=== PATIENT | female | born 1995 | race Hispanic/Latino ===

== ENCOUNTER 2016-06-30 22:42 | Emergency (ER) | payer OTHER ==
[~2016-06-30] VITALS: Ht 154.9 cm; Wt 81.8 kg
[~2016-06-30 22:42] MED LIST: MIRT15TA PO; PRAZ1CAP PO; RISP2TAB21 PO; SERT50TA PO
[2016-06-30 22:45] VITALS: BP 97/62; PULSE 83; RESP 16; O2SAT 100
--- NOTE | 2016-07-01 00:21 | ED.REPORT ---
HPI- Female Date of Service July 01, 2016 ED Provider: Michel Rascon MD A 21 year old female with a history of PTSD, asthma, and depression presents to the ED reporting abnormal vaginal bleeding onset one week ago. The patient reports clotting and "tissue-like" discharge, different from her normal menstrual period. Associated symptoms include mild lower abdominal cramping and painful intercourse. The patient denies nausea, vomiting, or other symptoms. She was seen at [facility] yesterday and was placed on Septra for a UTI. Her previous menstrual period was in March. She has had no positive home urine tests. Nursing Notes Stated Complaint: VAGINAL BLEEDING Chief Complaint: Female Abdominal Pain Nursing Notes Reviewed: Yes Allergies: Coded Allergies: No Known Allergies (Unverified , 06/30/16) Scheduled Doxycycline Monohyd (Doxycycline Monohyd) 100 Mg Tablet 100 MG PO BID Metronidazole (Flagyl) 500 Mg Tablet 500 MG PO Q8H Prazosin (Minipress) 1 Mg Capsule 4 MG PO HS Prazosin (Minipress) 1 Mg Capsule 1 MG PO DAILY Risperidone (Risperdal) 2 Mg Tablet 2 MG PO HS Sertraline HCl (Zoloft) 50 Mg Tablet 150 MG PO DAILY Scheduled PRN Ibuprofen (Ibuprofen) 800 Mg Tablet 800 MG PO TID PRN PRN For Pain Mirtazapine (Remeron) 15 Mg Tablet 15 MG PO HSPMR PRN PRN For Insomnia General Time Seen by MD: 23:26 Chief Complaint Vaginal bleeding... (Moderate) Hx Obtained From: Patient Arrived By: Walk-in Sudden in Onset?: Yes Onset Occurred: 1 week ago Symptom Duration: Since onset Location: : Abdomen lower Quality: Cramping, Painful Severity: Current: Mild Severity: Maximum: Mild Sexual History / Control: Reports Pt is sexually active Pertinent Negative: Relieved by nothing Recent Healthcare: Recent doctor visit Past Medical History Past Medical History PTSD Asthma Major depression with suicide attempt Past Surgical History None reported Smoking History Never Smoker Social History Other Social History: Good social support Ambulatory Status Independent Review of Systems + Dyspareunia Constitutional: Denies: Fever GI: Reports: Abdominal pain (Lower, cramping), Denies: Nausea, Vomiting Female: Reports: Vaginal bleeding - abnl Complete sys rev & neg: except as marked. Respiratory: Denies: Non-productive cough, Shortness of breath Physical Exam Initial Vital Signs Vital Signs (First) Date Time Temp Pulse Resp B/P Pulse Ox O2 Delivery O2 Flow Rate FiO2 06/30/16 22:45 36.4 83 16 97/62 100 Room Air Initial VS: Reviewed Head / Eyes: Atraumatic, Normocephalic ENT: Conjunctiva normal, No scleral icterus Neck: Supple, Full range of motion Respiratory: Breath sounds normal, Clear to auscultation, No respiratory distress Cardiovascular: Regular rate & rhythm, Heart sounds normal Skin: Warm, Dry, No cyanosis Neurologic: Alert, Oriented, Nonfocal Female Genitourinary: Sandfill Operator Surface present, External genitalia NL, Os closed Vaginal Bleeding / Discharge: Positive: Discharge thick (Mucopurulent ) Pelvic Exam: Positive: Uterus enlarged (Mild), Uterus tender General/Constitutional: Awake, Alert Behavior: Positive: Anxious Abdomen: Soft, Non-tender Obese Interpretation & Diagnostics Lab Results Interpretation Result Diagram: 07/01/16 0015 Test 06/30/16 23:36 07/01/16 00:15 07/01/16 00:20 Hold Urine Received (Received) White Blood Count 9.4th/mm3 (3.8-10.1) Red Blood Count 4.16mil/mm3 (3.90-5.20) Hemoglobin 12.7g/dL (12.0-15.6) Hematocrit 38.1% (35.0-46.0) Mean Corpuscular Volume 91.6fL (81-100) Mean Corpuscular Hemoglobin 30.5pg (27.0-35.0) Mean Corpuscular Hemoglobin Concent 33.3% (32.0-37.0) Red Cell Distribution Width 12.8% (12.3-15.4) Platelet Count 376bil/L (150-400) Neutrophils (%) (Auto) 58.3% (40-74) Lymphocytes (%) (Auto) 27.9% (14-46) Monocytes (%) (Auto) 7.8% (4-12) Eosinophils (%) (Auto) 5.1% (0-5) Basophils (%) (Auto) 0.7% (0-3) Hold Charles Top Tube Received (Received) HCG Beta Subunit < 0.500mIU/mL Re-Eval/Medical Decision Med Decision/Clinical Course 21-year-old presents at the end of a double course with spotty bleeding and some clotting material some of it pale fibrinous clot coming down. She has had uterine tenderness and dyspareunia recently. Suspect endometritis, and indeed her pelvic exam reveals cervical motion tenderness and a tender uterus. Culture and GC chlamydia PCR are pending. Begun empirically with Rocephin, Doxy, and metronidazole. Ibuprofen for bleeding and cramps. confirmed negative. Discharge in stable condition. Contact with actionable culture results when available. Source of Hx: Old records Re-Evaluation/Progress : Time of Eval: 00:24 Patient Status: Condition improved Re-Evaluation/Progress Note: Pelvic exam performed. Discussed with patient lab results, diagnosis, and plan for discharge. Follow-up and return to the ER instructions given. Patient agrees with plan for care and all questions were addressed. Counseled Regarding: Diagnosis, Lab results, Need for follow-up, When/why to return to ED Discharge & Departure Shift Change Sign-Out Response to Therapy: Improved Impression: Primary Impression: Endometritis Additional Impression: Dysfunctional uterine bleeding Disposition: Home Discharge Condition All VS Reviewed: Yes Condition: Improved Patient Instructions: Endometritis (ED) Additional Instructions: Begin doxycycline twice daily for ten days. Begin Flagyl three times daily for ten days. Ibuprofen 800 mg three times daily if needed for pain. Follow-up with your doctor in the office. We will contact you if the results of her cultures require any additional evaluation or treatment. Your doctor will also have access to the lab results on Monday. Return for any immediate problems over the weekend. Referrals: [facility] (PCP) [place] Attestation Portions of this note were transcribed by Caridad Hill. I, Dr. Rascon, personally performed the history, physical exam, and medical decision-making; I reviewed and confirmed the accuracy of the information in the transcribed note. Signed by: Darlene Sutton, 07/01/2016, 02:20 copies to: [facility] Michel Rascon MD July 01, 2016 00:21 CARIDAD HILL July 01, 2016 01:49
[2016-07-01 00:27] LABS: BASOPHILS % (AUTO) 0.7 % (0-3); EOSINOPHILS % (AUTO) 5.1 % (0-5); MONOCYTES % (AUTO) 7.8 % (4-12); Mean Corpuscular Hemoglobin 30.5 pg (27.0-35.0); Mean Corpuscular Volume 91.6 fL (81-100); NEUTROPHILS % (AUTO) 58.3 % (40-74); Platelet Count 376 bil/L (150-400)
[2016-07-01] MEDS ORDERED: cefTRIAXone Inj 500 MG, Lidocaine PF 1% Inj 1 ML in Syringe 1 EACH IM ONE (00:30)
[2016-07-01] MEDS ORDERED: DOXY-232 PO (00:35)
[2016-07-01] MEDS ORDERED: METR500T PO (00:35)
[2016-07-01] MEDS ORDERED: IBUP800T28 PO (00:37)
[2016-07-01 01:01] VITALS: BP 103/65; PULSE 77; RESP 20; O2SAT 100
== END 2016-07-01 01:02 | disposition home or self-care (01) ==
LOC: SED 22:42
DX: N71.9 Inflammatory disease of uterus, unspecified (principal); J45.909 Unspecified asthma, uncomplicated; F32.9 Major depressive disorder, single episode, unspecified; F43.10 Post-traumatic stress disorder, unspecified
CPT/HCPCS: 36415; 81025; 84702; 85025; 87070; 87210; 87491; 87591; 96372; 99284; J0696